=== PATIENT | female | born 1940 | race Caucasian/White ===

== ENCOUNTER 2021-10-11 12:33 | Inpatient (IN) | payer MEDICARE ==
[2021-10-11] MEDS ORDERED: Aspirin Chewable 81 MG TAB ONE (13:29)
[2021-10-11 13:34] LABS: #Eosinphils 0.2 thou/uL (0.0-0.7); #Lymphocytes 1.2 thou/uL (1.20-3.40); #Monocytes 0.6 thou/uL (0.11-0.59); #Neutrophils 3.3 thou/uL (1.40-6.50); %Basophils 0.8 % (0.0-1.0); %Eosinophils 3.1 % (0.0-10.0); %Lymphocytes 22.1 % (21.0-51.0); %Monocytes 10.8 % (0.0-10.0); %Neutrophils 63.2 % (42.0-75.0); Hemoglobin 13.3 g/dL (12.0-16.0); Mean Corpuscular HGB CONC 33.1 g/dL (32.0-36.0); Mean Corpuscular Hemoglobin 34.5 pg (27.0-31.0); Mean Platelet Volume 7.8 fL (7.4-10.4); Platelet Count 140 thou/uL (130-400); Red Blood Cell (RBC) Count 3.86 mill/uL (4.20-5.40); White Blood Cell (WBC) Count 5.2 thou/uL (4.8-10.8)
[2021-10-11 13:58] LABS: ALT (SGPT) 11 U/L (8-55); AST (SGOT) 25 U/L (5-34); Albumin 3.2 g/dL (3.4-4.8); Alkaline Phosphatase 99 U/L (40-110); Anion Gap 12 mmol/L (10-20); BUN (Urea Nitrogen) 19 mg/dL (9.8-20.1); Bilirubin, Total 0.8 mg/dL (0.2-1.2); Calc. Creatinine Clearance 0 mL/min (70-130); Carbon Dioxide 33 mmol/L (23-31); Chloride 96 mmol/L (98-107); Globulin 3.5 g/dL (2.4-3.5); Glucose 95 mg/dL (83-110); Potassium 3.8 mmol/L (3.5-5.1); Protein, Total 6.7 g/dL (5.8-8.1); Sodium 137 mmol/L (136-145)
[2021-10-11 14:20] LABS: CKMB 1.2 ng/mL (0-6.6)
[2021-10-11 15:20] LABS: Bacteria/HPF None Seen HPF (None Seen); Bilirubin Negative (Negative); Blood, Urine Negative (Negative); Clarity Clear (Clear); Glucose, Urine (Dipstick) Normal (Negative); Ketone, Urine Negative (Negative); Leukocyte Negative Leu/uL (Negative); Nitrite Negative (Negative); Protein, Urine (Dipstick) 100 mg/dL (Neg-Trace); RBC/HPF None Seen HPF (0-3); Specific Gravity, Urine 1.011 (1.002-1.036); Squamous Epithelial 0-3 HPF (0-3); Urobilinogen Normal mg/dL (Less than 2); WBC/HPF 0-3 HPF (0-3)
[2021-10-11 17:25] LABS: INR-International Normal Ratio 1.2; PTT 27.9 sec (22.9-36.1); Prothrombin Time 14.9 sec (12.0-14.7)
[2021-10-11] MEDS ORDERED: Ondansetron PF 4 MG/2 ML Vial IVP PRN (18:20)
[2021-10-11 18:36] LABS: Troponin I 0.027 ng/mL (< 0.028)
[2021-10-11 19:53] LABS: SARS-CoV-2 NAA Rapid Test Not Detected (NotDetected)
[2021-10-11] MEDS ORDERED: Famotidine 20 MG TAB ONE (21:10)
[2021-10-11] MEDS: Senokot 8.6 MG TAB PO SCH (21:39)
[2021-10-11] MEDS: Famotidine 20 MG TAB PO SCH (21:39)
[2021-10-11 22:50] LABS: Troponin I 0.036 ng/mL (< 0.028)
[2021-10-11] MEDS ORDERED: HYDROcodone/Acetaminophen 10/325 mg Tablet ONE (23:49)
[2021-10-11] MEDS: HYDROcodone/Acetaminophen 10/325 mg Tablet PO PRN (23:54)
[2021-10-12] MEDS ORDERED: Morphine 4 MG/ML VIAL SLOW IVP PRN (02:33)
[2021-10-12] MEDS ORDERED: Morphine 4 MG/ML VIAL ONE (03:10)
[2021-10-12 09:46] VITALS: BMI 40.4
[2021-10-12] MEDS ORDERED: HYDROcodone/Acetaminophen 10/325 mg Tablet PO PRN ×2 (11:32→11:33)
[2021-10-12] MEDS ORDERED: Lisinopril 5 MG TAB PO SCH (11:45)
[2021-10-12] MEDS ORDERED: Warfarin Sodium 2.5 MG TAB PO SCH (11:45)
[2021-10-12] MEDS ORDERED: FLUoxetine HCl 20 MG CAP PO SCH (11:45)
[2021-10-12] MEDS ORDERED: Warfarin Sodium 5 MG TAB PO SCH (11:45)
[2021-10-12] MEDS ORDERED: Morphine 4 MG/ML VIAL SLOW IVP SCH (12:00)
[2021-10-12] MEDS ORDERED: HYDROcodone/Acetaminophen 10/325 mg Tablet ONE (12:01)
[2021-10-12] MEDS: HYDROcodone/Acetaminophen 10/325 mg Tablet PO PRN (12:26)
[2021-10-12] MEDS ORDERED: Famotidine 20 MG TAB ONE (12:49)
[2021-10-12] MEDS ORDERED: Lisinopril 10 MG TAB ONE (12:49)
[2021-10-12] MEDS: Famotidine 20 MG TAB PO SCH ×2 (13:41→20:48)
[2021-10-12] MEDS: Gabapentin 100 MG CAP PO SCH ×2 (15:44→20:47)
[2021-10-12] MEDS ORDERED: FLU VACC QS2021-22(65YR UP)/PF 240 MCG/0.7 ML SYRINGE IM ONE (16:00)
[2021-10-12] MEDS: Warfarin Sodium 5 MG TAB PO SCH (16:46)
[2021-10-12] MEDS: Senokot 8.6 MG TAB PO SCH (20:48)
[2021-10-12] MEDS: Simvastatin 5 MG TAB PO SCH (20:48)
[2021-10-13] MEDS: Levothyroxine Sodium 112 MCG TAB PO SCH (05:54)
[2021-10-13] MEDS: Gabapentin 100 MG CAP PO SCH ×3 (09:32→21:31)
[2021-10-13] MEDS: FLUoxetine HCl 20 MG CAP PO SCH (09:33)
[2021-10-13] MEDS: Lisinopril 5 MG TAB PO SCH (09:33)
[2021-10-13] MEDS: Famotidine 20 MG TAB PO SCH ×2 (09:34→21:31)
[2021-10-13] MEDS: Allopurinol 300 MG TAB PO SCH (09:34)
[2021-10-13] MEDS ORDERED: oxyCODONE 5 MG TAB PO PRN (10:58)
[2021-10-13] MEDS ORDERED: Dexamethasone 4 MG TAB PO SCH (11:15)
[2021-10-13] MEDS ORDERED: Warfarin Sodium 2.5 MG TAB PO SCH (17:00)
[2021-10-13] MEDS: Oxybutynin 5 MG TAB PO SCH (21:31)
[2021-10-13] MEDS: oxyCODONE ER 10 MG TAB PO SCH (21:31)
[2021-10-13] MEDS: Senokot 8.6 MG TAB PO SCH (21:31)
[2021-10-13] MEDS: Simvastatin 5 MG TAB PO SCH (21:31)
[2021-10-14 05:21] LABS: INR-International Normal Ratio 1.4; Prothrombin Time 17.4 sec (12.0-14.7)
[2021-10-14] MEDS: Levothyroxine Sodium 112 MCG TAB PO SCH (06:05)
[2021-10-14] MEDS: Polyethylene Glycol 3350 17 GM Packet PO SCH (09:29)
[2021-10-14] MEDS: Famotidine 20 MG TAB PO SCH ×2 (09:30→22:20)
[2021-10-14] MEDS: Allopurinol 300 MG TAB PO SCH (09:30)
[2021-10-14] MEDS: FLUoxetine HCl 20 MG CAP PO SCH (09:30)
[2021-10-14] MEDS: Lisinopril 5 MG TAB PO SCH (09:30)
[2021-10-14] MEDS: Oxybutynin 5 MG TAB PO SCH ×3 (09:30→22:20)
[2021-10-14] MEDS: Gabapentin 100 MG CAP PO SCH ×3 (09:30→22:20)
[2021-10-14] MEDS: oxyCODONE ER 10 MG TAB PO SCH ×2 (09:31→22:20)
[2021-10-14] MEDS: Dexamethasone 4 MG TAB PO SCH (09:31)
[2021-10-14] MEDS: Warfarin Sodium 5 MG TAB PO SCH (18:15)
[2021-10-14] MEDS: Simvastatin 5 MG TAB PO SCH (22:20)
[2021-10-14] MEDS: Senokot 8.6 MG TAB PO SCH (22:21)
[2021-10-15 04:49] LABS: INR-International Normal Ratio 1.9; Prothrombin Time 21.8 sec (12.0-14.7)
[2021-10-15] MEDS: Levothyroxine Sodium 112 MCG TAB PO SCH (05:42)
[2021-10-15] MEDS: Polyethylene Glycol 3350 17 GM Packet PO SCH (09:30)
[2021-10-15] MEDS: Gabapentin 100 MG CAP PO SCH (09:31)
[2021-10-15] MEDS: Oxybutynin 5 MG TAB PO SCH (09:31)
[2021-10-15] MEDS: FLUoxetine HCl 20 MG CAP PO SCH (09:31)
[2021-10-15] MEDS: Famotidine 20 MG TAB PO SCH (09:31)
[2021-10-15] MEDS: Lisinopril 5 MG TAB PO SCH (09:32)
[2021-10-15] MEDS: oxyCODONE ER 10 MG TAB PO SCH (09:32)
[2021-10-15] MEDS: Allopurinol 300 MG TAB PO SCH (09:32)
[2021-10-15] MEDS: Dexamethasone 4 MG TAB PO SCH (09:32)
[2021-10-15 12:22] VITALS: BP 155/65; TEMP 97.7
== END 2021-10-15 12:25 | DRG 552 ==
LOC: ERS 12:33 → ERHOLD 17:06 → OBSVTOIN 10-12 11:45 → SJJU 10-12 14:33
PROVIDERS: ADMIT Family Medicine; ATTEND Internal Medicine
DX: S32.000A Wedge compression fracture of unspecified lumbar vertebra, initial encounter for closed fracture (principal); I48.20 Chronic atrial fibrillation, unspecified; Z20.822 Contact with and (suspected) exposure to COVID-19; Z66 Do not resuscitate; R79.89 Other specified abnormal findings of blood chemistry; E66.9 Obesity, unspecified; M48.061 Spinal stenosis, lumbar region without neurogenic claudication; R15.9 Full incontinence of feces; R32 Unspecified urinary incontinence; F32.A Depression, unspecified; E03.9 Hypothyroidism, unspecified; W18.30XA Fall on same level, unspecified, initial encounter; E11.9 Type 2 diabetes mellitus without complications; E78.5 Hyperlipidemia, unspecified; M10.9 Gout, unspecified; M43.06 Spondylolysis, lumbar region; Z68.41 Body mass index [BMI] 40.0-44.9, adult; Z82.49 Family history of ischemic heart disease and other diseases of the circulatory system; Z83.6 Family history of other diseases of the respiratory system; Z79.01 Long term (current) use of anticoagulants; Z79.890 Hormone replacement therapy; Z79.899 Other long term (current) drug therapy; Z86.73 Personal history of transient ischemic attack (TIA), and cerebral infarction without residual deficits; Z90.49 Acquired absence of other specified parts of digestive tract; Z90.710 Acquired absence of both cervix and uterus; Y92.002 Bathroom of unspecified non-institutional (private) residence as the place of occurrence of the external cause
CPT/HCPCS: 36415; 36416; 51701; 71045; 72100; 72148; 80053; 81003; 81015; 82553; 83880; 84484; 85025; 85610; 85730; 93005; 96374; G0378; J2270; J8540; U0002

== ENCOUNTER 2022-06-09 11:21 | Inpatient (IN) | payer MEDICARE, MEDICAID ==
[2022-06-09 12:25] LABS: #Eosinphils 0.4 thou/uL (0.0-0.7); #Lymphocytes 1.1 thou/uL (1.20-3.40); #Monocytes 0.4 thou/uL (0.11-0.59); #Neutrophils 2.8 thou/uL (1.40-6.50); %Basophils 0.6 % (0.0-1.0); %Eosinophils 7.7 % (0.0-10.0); %Monocytes 8.2 % (0.0-10.0); %Neutrophils 59.5 % (42.0-75.0); Hemoglobin 9.1 g/dL (12.0-16.0); Mean Corpuscular Hemoglobin 31.1 pg (27.0-31.0); Mean Platelet Volume 7.1 fL (7.4-10.4); Platelet Count 176 thou/uL (130-400); RBC Distribution Width 13.7 % (11.5-14.5); Red Blood Cell (RBC) Count 2.93 mill/uL (4.20-5.40); White Blood Cell (WBC) Count 4.7 thou/uL (4.8-10.8)
[2022-06-09 12:36] LABS: INR-International Normal Ratio 1.2; PTT 34.3 sec (22.9-36.1); Prothrombin Time 15.3 sec (12.0-14.7)
[2022-06-09 12:46] LABS: ALT (SGPT) Less than 7 U/L (8-55); AST (SGOT) 12 U/L (5-34); Albumin 3.2 g/dL (3.4-4.8); Alkaline Phosphatase 66 U/L (40-110); Anion Gap 10 mmol/L (10-20); BUN (Urea Nitrogen) 16 mg/dL (9.8-20.1); Bilirubin, Total 0.3 mg/dL (0.2-1.2); Calc. Creatinine Clearance 0 mL/min (70-130); Calcium 8.4 mg/dL (7.8-10.44); Carbon Dioxide 31 mmol/L (23-31); Chloride 102 mmol/L (98-107); Estimated GFR 52; Globulin 3.5 g/dL (2.4-3.5); Glucose 98 mg/dL (83-110); Magnesium 1.9 mg/dL (1.6-2.6); Potassium 4.4 mmol/L (3.5-5.1); Protein, Total 6.7 g/dL (5.8-8.1); Sodium 139 mmol/L (136-145)
[2022-06-09] MEDS ORDERED: Pantoprazole 40 MG VIAL ONE (13:28)
[2022-06-09] MEDS ORDERED: GASTROGRAFIN 30 ML BOT ONE (14:06)
[2022-06-09] MEDS ORDERED: Iopamidol-370 76% 500 ML 1 ML ONE (14:06)
[2022-06-09] MEDS ORDERED: Artificial Tear Sol 15 ML BOT EA EYE PRN (14:15)
[2022-06-09] MEDS ORDERED: Ondansetron PF 4 MG/2 ML Vial IVP PRN (14:15)
[2022-06-09] MEDS ORDERED: Acetaminophen 650 MG Suppository PR PRN (14:15)
[2022-06-09] MEDS ORDERED: Moisturizing Cream (Eucerin) 113 GM JAR TOP PRN (14:15)
[2022-06-09] MEDS ORDERED: hydrALAZINE 20 MG/ML VIAL SLOW IVP PRN (14:15)
[2022-06-09] MEDS ORDERED: Acetaminophen 325 MG TAB PO PRN (14:15)
[2022-06-09] MEDS ORDERED: Labetalol HCl 100 MG/20 ML VIAL SLOW IVP PRN (14:15)
[2022-06-09] MEDS ORDERED: Cepastat Lozenges 1 LOZ PO PRN (14:15)
[2022-06-09 14:33] LABS: Bacteria/HPF None Seen HPF (None Seen); Bilirubin Negative (Negative); Blood, Urine 3+ (Negative); Clarity Clear (Clear); Glucose, Urine (Dipstick) Normal (Negative); Ketone, Urine Negative (Negative); Leukocyte Negative Leu/uL (Negative); Nitrite Negative (Negative); Protein, Urine (Dipstick) 10 mg/dL (Neg-Trace); RBC/HPF Greater than 50 HPF (0-3); Specific Gravity, Urine 1.006 (1.002-1.036); Squamous Epithelial 0-3 HPF (0-3); Urobilinogen Normal mg/dL (Less than 2); WBC/HPF 0-3 HPF (0-3)
[2022-06-09 16:53] VITALS: BMI 37.9
[2022-06-09 17:04] LABS: Hemoglobin 9.1 g/dL (12.0-16.0); Platelet Count 164 thou/uL (130-400)
[2022-06-09 17:24] LABS: Magnesium 1.9 mg/dL (1.6-2.6); Phosphorus 3.5 mg/dL (2.3-4.7)
[2022-06-09] MEDS: Gabapentin 100 MG CAP PO SCH (21:18)
[2022-06-09] MEDS: Donepezil HCl 5 MG TAB PO SCH (21:18)
[2022-06-09] MEDS: Amoxicillin/Potassium Clav 875 MG TAB PO SCH (21:18)
[2022-06-09 23:24] LABS: Platelet Count 162 thou/uL (130-400)
[2022-06-10 03:50] LABS: #Eosinphils 0.4 thou/uL (0.0-0.7); #Lymphocytes 1.1 thou/uL (1.20-3.40); #Monocytes 0.4 thou/uL (0.11-0.59); #Neutrophils 2.6 thou/uL (1.40-6.50); %Basophils 0.8 % (0.0-1.0); %Eosinophils 8.4 % (0.0-10.0); %Lymphocytes 23.6 % (21.0-51.0); %Monocytes 9.8 % (0.0-10.0); %Neutrophils 57.4 % (42.0-75.0); Hemoglobin 8.1 g/dL (12.0-16.0); Mean Corpuscular HGB CONC 33.4 g/dL (32.0-36.0); Mean Platelet Volume 7.4 fL (7.4-10.4); Platelet Count 154 thou/uL (130-400); RBC Distribution Width 13.7 % (11.5-14.5); Red Blood Cell (RBC) Count 2.38 mill/uL (4.20-5.40); White Blood Cell (WBC) Count 4.6 thou/uL (4.8-10.8)
[2022-06-10 04:08] LABS: Anion Gap 10 mmol/L (10-20); BUN (Urea Nitrogen) 16 mg/dL (9.8-20.1); Calc. Creatinine Clearance 80 mL/min (70-130); Carbon Dioxide 29 mmol/L (23-31); Chloride 104 mmol/L (98-107); Estimated GFR 66; Glucose 81 mg/dL (83-110); Potassium 4.5 mmol/L (3.5-5.1); Sodium 138 mmol/L (136-145)
[2022-06-10] MEDS: Levothyroxine Sodium 112 MCG TAB PO SCH (05:37)
[2022-06-10] MEDS ORDERED: Pantoprazole 40 MG VIAL IVP SCH (09:00)
[2022-06-10] MEDS: Amoxicillin/Potassium Clav 875 MG TAB PO SCH ×2 (09:36→21:09)
[2022-06-10] MEDS: FLUoxetine HCl 20 MG CAP PO SCH (09:36)
[2022-06-10] MEDS: Oxybutynin 5 MG TAB PO SCH (09:37)
[2022-06-10] MEDS: Gabapentin 100 MG CAP PO SCH ×3 (09:37→21:10)
[2022-06-10] MEDS: Folic Acid 1 MG TAB PO SCH (09:37)
[2022-06-10] MEDS: Allopurinol 100 MG TAB PO SCH (09:37)
[2022-06-10 10:50] LABS: Hemoglobin 8.5 g/dL (12.0-16.0)
[2022-06-10] MEDS ORDERED: Electrolyte Replacement Protocol 1 EACH FS SCH (16:15)
[2022-06-10] MEDS ORDERED: Electrolyte Replacement Protocol FS PRN (16:45)
[2022-06-10] MEDS ORDERED: GoLYTELY 4,000 ml Bottle PO SCH (18:00)
[2022-06-10] MEDS: Donepezil HCl 5 MG TAB PO SCH (21:09)
[2022-06-10] MEDS: Pantoprazole 40 MG VIAL IVP SCH (21:10)
[2022-06-10] MEDS: Ondansetron ODT 4 MG TAB PO PRN (22:30)
[2022-06-11] MEDS ORDERED: Magnesium 2 GM/50 ML(in water) 2 GM in Premix Bag 1 BAG IVPB SCH ×2 (01:00→07:45)
[2022-06-11] MEDS: Levothyroxine Sodium 112 MCG TAB PO SCH (05:49)
[2022-06-11 06:26] LABS: #Eosinphils 0.3 thou/uL (0.0-0.7); #Lymphocytes 1.2 thou/uL (1.20-3.40); #Monocytes 0.5 thou/uL (0.11-0.59); #Neutrophils 2.4 thou/uL (1.40-6.50); %Basophils 0.3 % (0.0-1.0); %Eosinophils 6.2 % (0.0-10.0); %Lymphocytes 26.7 % (21.0-51.0); %Monocytes 10.6 % (0.0-10.0); %Neutrophils 56.2 % (42.0-75.0); Hemoglobin 8.4 g/dL (12.0-16.0); Mean Corpuscular HGB CONC 31.6 g/dL (32.0-36.0); Mean Corpuscular Hemoglobin 31.7 pg (27.0-31.0); Mean Platelet Volume 7.3 fL (7.4-10.4); Platelet Count 161 thou/uL (130-400); RBC Distribution Width 13.7 % (11.5-14.5); Red Blood Cell (RBC) Count 2.65 mill/uL (4.20-5.40); White Blood Cell (WBC) Count 4.3 thou/uL (4.8-10.8)
[2022-06-11 06:45] LABS: Anion Gap 14 mmol/L (10-20); BUN (Urea Nitrogen) 14 mg/dL (9.8-20.1); Calc. Creatinine Clearance 80 mL/min (70-130); Calcium 8.4 mg/dL (7.8-10.44); Carbon Dioxide 26 mmol/L (23-31); Chloride 105 mmol/L (98-107); Estimated GFR 66; Glucose 88 mg/dL (83-110); Potassium 4.4 mmol/L (3.5-5.1); Sodium 141 mmol/L (136-145)
[2022-06-11] MEDS ORDERED: PROPOFOL 200 MG/20 ML VIAL ONE (08:28)
[2022-06-11] MEDS: Amoxicillin/Potassium Clav 875 MG TAB PO SCH ×2 (10:40→21:15)
[2022-06-11] MEDS: FLUoxetine HCl 20 MG CAP PO SCH (10:41)
[2022-06-11] MEDS: Gabapentin 100 MG CAP PO SCH ×3 (10:41→21:16)
[2022-06-11] MEDS: Pantoprazole 40 MG VIAL IVP SCH ×2 (10:41→21:16)
[2022-06-11] MEDS: Oxybutynin 5 MG TAB PO SCH (10:41)
[2022-06-11] MEDS: Folic Acid 1 MG TAB PO SCH (10:41)
[2022-06-11] MEDS: Allopurinol 100 MG TAB PO SCH (10:41)
[2022-06-11 16:07] LABS: Campy jejuni + coli by PCR Negative (Negative); STEC Shiga Toxin 1+2 Negative (Negative); Salmonella spp. by PCR Negative (Negative); Shigella spp + EIEC by PCR Negative (Negative)
[2022-06-11] MEDS: Donepezil HCl 5 MG TAB PO SCH (21:16)
[2022-06-12] MEDS: Levothyroxine Sodium 112 MCG TAB PO SCH (05:24)
[2022-06-12 06:04] LABS: #Eosinphils 0.3 thou/uL (0.0-0.7); #Lymphocytes 1.2 thou/uL (1.20-3.40); #Monocytes 0.4 thou/uL (0.11-0.59); %Basophils 0.2 % (0.0-1.0); %Eosinophils 6.5 % (0.0-10.0); %Lymphocytes 24.6 % (21.0-51.0); %Monocytes 8.7 % (0.0-10.0); Hemoglobin 8.2 g/dL (12.0-16.0); Mean Corpuscular HGB CONC 32.4 g/dL (32.0-36.0); Mean Corpuscular Hemoglobin 32.5 pg (27.0-31.0); Mean Platelet Volume 7.7 fL (7.4-10.4); Platelet Count 152 thou/uL (130-400); RBC Distribution Width 13.8 % (11.5-14.5); Red Blood Cell (RBC) Count 2.53 mill/uL (4.20-5.40)
[2022-06-12 06:27] LABS: Anion Gap 12 mmol/L (10-20); BUN (Urea Nitrogen) 9 mg/dL (9.8-20.1); Calc. Creatinine Clearance 83 mL/min (70-130); Calcium 8.1 mg/dL (7.8-10.44); Carbon Dioxide 28 mmol/L (23-31); Chloride 102 mmol/L (98-107); Estimated GFR 68; Glucose 80 mg/dL (83-110); Magnesium 2.2 mg/dL (1.6-2.6); Potassium 3.9 mmol/L (3.5-5.1); Sodium 138 mmol/L (136-145)
[2022-06-12] MEDS: Oxybutynin 5 MG TAB PO SCH (08:46)
[2022-06-12] MEDS: Allopurinol 100 MG TAB PO SCH (08:46)
[2022-06-12] MEDS: Folic Acid 1 MG TAB PO SCH (08:46)
[2022-06-12] MEDS: Amoxicillin/Potassium Clav 875 MG TAB PO SCH (08:46)
[2022-06-12] MEDS: FLUoxetine HCl 20 MG CAP PO SCH (08:46)
[2022-06-12] MEDS: Gabapentin 100 MG CAP PO SCH ×3 (08:46→20:01)
[2022-06-12] MEDS: Pantoprazole 40 MG VIAL IVP SCH ×2 (08:47→20:02)
[2022-06-12] MEDS ORDERED: Magnesium Citrate 300 ML BOT PO SCH ×2 (09:00→14:00)
[2022-06-12] MEDS ORDERED: guaiFENesin ER 600 MG TAB PO PRN (12:50)
[2022-06-12] MEDS: Erythromycin Base 250 MG TAB PO SCH ×4 (13:45→20:04)
[2022-06-12] MEDS ORDERED: Polyethylene Glycol 3350 17 GM Packet PO SCH ×2 (15:00→17:00)
[2022-06-12] MEDS: Metoclopramide HCl 10 MG TAB PO SCH ×2 (15:27→20:02)
[2022-06-12] MEDS: Neomycin 500 mg Tablet PO SCH ×3 (17:21→20:05)
[2022-06-12] MEDS: Donepezil HCl 5 MG TAB PO SCH (20:01)
[2022-06-12] MEDS: Senokot 8.6 MG TAB PO SCH (20:03)
[2022-06-12] MEDS: Simvastatin 10 MG TAB PO SCH (20:03)
[2022-06-13] MEDS: Ondansetron ODT 4 MG TAB PO PRN (02:53)
[2022-06-13] MEDS: Levothyroxine Sodium 112 MCG TAB PO SCH (05:33)
[2022-06-13] MEDS ORDERED: fentaNYL Citrate/PF 100 MCG/2 ML SYRINGE ONE (06:00)
[2022-06-13 06:32] LABS: #Eosinphils 0.1 thou/uL (0.0-0.7); #Monocytes 0.3 thou/uL (0.11-0.59); #Neutrophils 3.7 thou/uL (1.40-6.50); %Basophils 0.5 % (0.0-1.0); %Eosinophils 1.5 % (0.0-10.0); %Lymphocytes 20.1 % (21.0-51.0); %Monocytes 6.2 % (0.0-10.0); %Neutrophils 71.8 % (42.0-75.0); Hemoglobin 8.2 g/dL (12.0-16.0); Mean Corpuscular Hemoglobin 33.1 pg (27.0-31.0); Mean Platelet Volume 7.5 fL (7.4-10.4); Platelet Count 160 thou/uL (130-400); RBC Distribution Width 13.6 % (11.5-14.5); Red Blood Cell (RBC) Count 2.47 mill/uL (4.20-5.40); White Blood Cell (WBC) Count 5.1 thou/uL (4.8-10.8)
[2022-06-13] MEDS ORDERED: Iopamidol 0 ML ONE (06:43)
[2022-06-13] MEDS ORDERED: Bupivacaine/Epinephrine 0.25% 30 ML VIAL ONE ×2 (06:43→07:14)
[2022-06-13 06:54] LABS: Anion Gap 13 mmol/L (10-20); BUN (Urea Nitrogen) 8 mg/dL (9.8-20.1); Calc. Creatinine Clearance 85 mL/min (70-130); Calcium 8.1 mg/dL (7.8-10.44); Carbon Dioxide 29 mmol/L (23-31); Chloride 101 mmol/L (98-107); Estimated GFR 70; Glucose 94 mg/dL (83-110); Potassium 4.1 mmol/L (3.5-5.1); Sodium 139 mmol/L (136-145)
[2022-06-13] MEDS ORDERED: Fentanyl 100 MCG/2 ML VIAL ONE (07:59)
[2022-06-13] MEDS ORDERED: cefOXitin 2 GM VIAL ONE ×3 (08:14→12:43)
[2022-06-13] MEDS ORDERED: Sodium Chloride 0.9% 100 ML ONE (08:14)
[2022-06-13] MEDS ORDERED: Ropivacaine 0.5% HCl/PF (150 MG/30 ML VIAL) ONE (08:52)
[2022-06-13] MEDS ORDERED: PROPOFOL 200 MG/20 ML VIAL ONE (08:52)
[2022-06-13] MEDS ORDERED: Vecuronium 10 MG VIAL ONE (08:52)
[2022-06-13] MEDS ORDERED: Phenylephrine 10 MG/ML VIAL ONE (08:52)
[2022-06-13] MEDS ORDERED: Rocuronium Bromide 10 MG/ML (10ML VIAL) ONE (08:52)
[2022-06-13] MEDS ORDERED: Ondansetron PF 4 MG/2 ML Vial ONE (08:52)
[2022-06-13] MEDS ORDERED: Ropivacaine 2% HCl/PF (20 MG/10 ML VIAL) ONE (08:52)
[2022-06-13] MEDS ORDERED: Dexamethasone 20 MG/5 ML VIAL ONE (08:52)
[2022-06-13] MEDS ORDERED: Norepinephrine 4 MG/4 ML VIAL ONE ×2 (09:12→12:10)
[2022-06-13] MEDS: Allopurinol 100 MG TAB PO SCH (10:16)
[2022-06-13] MEDS: Gabapentin 100 MG CAP PO SCH ×3 (10:17→20:35)
[2022-06-13] MEDS: Folic Acid 1 MG TAB PO SCH (10:17)
[2022-06-13] MEDS: FLUoxetine HCl 20 MG CAP PO SCH (10:17)
[2022-06-13] MEDS: Oxybutynin 5 MG TAB PO SCH (10:18)
[2022-06-13] MEDS: Pantoprazole 40 MG VIAL IVP SCH (10:18)
[2022-06-13] MEDS ORDERED: SUGAMMADEX SODIUM 200 MG/2 ML VIAL ONE (10:42)
[2022-06-13] MEDS ORDERED: Promethazine HCl 25 MG/ML VIAL IVPB PRN (13:43)
[2022-06-13] MEDS ORDERED: Promethazine HCl 25 MG/ML VIAL IM PRN ×2 (13:43→14:05)
[2022-06-13] MEDS ORDERED: Ondansetron HCl/PF 4 MG/2 ML Vial IVP PRN (13:43)
[2022-06-13] MEDS ORDERED: Morphine 2 MG/ML VIAL SLOW IVP PRN (14:05)
[2022-06-13] MEDS ORDERED: Morphine 4 MG/ML VIAL SLOW IVP PRN (14:05)
[2022-06-13] MEDS ORDERED: Ondansetron PF 4 MG/2 ML Vial IVP PRN (14:05)
[2022-06-13] MEDS ORDERED: hydrALAZINE 20 MG/ML VIAL SLOW IVP PRN (14:05)
[2022-06-13] MEDS: Sodium Chloride 0.9% 1,000 ML IV SCH ×2 (16:22→22:15)
[2022-06-13] MEDS: cefOXitin 2 GM in Sodium Chloride 0.9% 100 ML IVPB SCH (17:10)
[2022-06-13] MEDS: Famotidine 20 MG TAB PO SCH (20:35)
[2022-06-13] MEDS: Famotidine/PF 20 mg/2ml Vial SLOW IVP SCH (20:35)
[2022-06-13] MEDS: Senokot 8.6 MG TAB PO SCH (20:35)
[2022-06-13] MEDS: Simvastatin 10 MG TAB PO SCH (20:35)
[2022-06-13] MEDS: Donepezil HCl 5 MG TAB PO SCH (20:35)
[2022-06-14] MEDS: cefOXitin 2 GM in Sodium Chloride 0.9% 100 ML IVPB SCH (01:09)
[2022-06-14] MEDS: Sodium Chloride 0.9% 1,000 ML IV SCH ×3 (05:49→23:40)
[2022-06-14] MEDS: Levothyroxine Sodium 112 MCG TAB PO SCH (05:49)
[2022-06-14 06:06] LABS: #Lymphocytes 0.8 thou/uL (1.20-3.40); #Monocytes 0.8 thou/uL (0.11-0.59); #Neutrophils 6.9 thou/uL (1.40-6.50); %Eosinophils 0.1 % (0.0-10.0); %Lymphocytes 8.9 % (21.0-51.0); %Monocytes 9.8 % (0.0-10.0); %Neutrophils 81.2 % (42.0-75.0); Mean Corpuscular HGB CONC 31.3 g/dL (32.0-36.0); Mean Corpuscular Hemoglobin 31.2 pg (27.0-31.0); Mean Corpuscular Volume 99.6 fL (78.0-98.0); Mean Platelet Volume 7.4 fL (7.4-10.4); Platelet Count 185 thou/uL (130-400); RBC Distribution Width 13.9 % (11.5-14.5); Red Blood Cell (RBC) Count 2.25 mill/uL (4.20-5.40); White Blood Cell (WBC) Count 8.5 thou/uL (4.8-10.8)
[2022-06-14 06:29] LABS: Anion Gap 12 mmol/L (10-20); BUN (Urea Nitrogen) 10 mg/dL (9.8-20.1); Calc. Creatinine Clearance 67 mL/min (70-130); Calcium 7.9 mg/dL (7.8-10.44); Carbon Dioxide 27 mmol/L (23-31); Chloride 102 mmol/L (98-107); Estimated GFR 52; Glucose 109 mg/dL (83-110); Magnesium 1.8 mg/dL (1.6-2.6); Phosphorus 3.6 mg/dL (2.3-4.7); Potassium 4.3 mmol/L (3.5-5.1); Sodium 137 mmol/L (136-145)
[2022-06-14] MEDS ORDERED: Magnesium 2 GM/50 ML(in water) 2 GM in Premix Bag 1 BAG IVPB SCH (08:00)
[2022-06-14] MEDS: FLUoxetine HCl 20 MG CAP PO SCH (08:30)
[2022-06-14] MEDS: Famotidine 20 MG TAB PO SCH ×2 (08:30→20:23)
[2022-06-14] MEDS: Folic Acid 1 MG TAB PO SCH (08:30)
[2022-06-14] MEDS: Allopurinol 100 MG TAB PO SCH (08:30)
[2022-06-14] MEDS: Gabapentin 100 MG CAP PO SCH ×3 (08:30→20:24)
[2022-06-14] MEDS: Oxybutynin 5 MG TAB PO SCH (08:30)
[2022-06-14] MEDS: Famotidine/PF 20 mg/2ml Vial SLOW IVP SCH ×2 (08:31→20:23)
[2022-06-14] MEDS ORDERED: Furosemide 20 MG/2 ML VIAL SLOW IVP SCH (12:00)
[2022-06-14 15:06] LABS: Hemoglobin 8.2 g/dL (12.0-16.0); Mean Corpuscular HGB CONC 31.3 g/dL (32.0-36.0); Mean Corpuscular Hemoglobin 31.1 pg (27.0-31.0); Mean Corpuscular Volume 99.4 fL (78.0-98.0); Platelet Count 170 thou/uL (130-400); RBC Distribution Width 13.7 % (11.5-14.5); Red Blood Cell (RBC) Count 2.63 mill/uL (4.20-5.40); White Blood Cell (WBC) Count 9.1 thou/uL (4.8-10.8)
[2022-06-14 15:07] LABS: Band 1 % (5-11); Hypochromia SLIGHT = 6-15 cells (100X) (0-5/hpf); Lymphocytes 13 % (21-51); MDiff Complete? YES; Macrocytosis SLIGHT = 6-15 cells (100X) (0-5/hpf); Monocytes 11 % (0-10); Neutrophil 73 % (42-75); Platelet Morphology Comment Appears Adequate; Polychromasia SLIGHT = 2-3 cells (100X) (0-2/hpf); Reactive Lymphocytes 2 % (0-10); Target Cells SLIGHT = 2-5 cells (100X) (0-1/hpf)
[2022-06-14] MEDS: Donepezil HCl 5 MG TAB PO SCH (20:23)
[2022-06-14] MEDS: Senokot 8.6 MG TAB PO SCH (20:23)
[2022-06-14] MEDS: Simvastatin 10 MG TAB PO SCH (20:24)
[2022-06-15] MEDS: Levothyroxine Sodium 112 MCG TAB PO SCH (05:52)
[2022-06-15] MEDS: Sodium Chloride 0.9% 1,000 ML IV SCH (05:57)
[2022-06-15 06:19] LABS: #Eosinphils 0.1 thou/uL (0.0-0.7); #Lymphocytes 1.1 thou/uL (1.20-3.40); #Monocytes 0.7 thou/uL (0.11-0.59); #Neutrophils 4.2 thou/uL (1.40-6.50); %Basophils 0.4 % (0.0-1.0); %Lymphocytes 17.2 % (21.0-51.0); %Monocytes 11.7 % (0.0-10.0); %Neutrophils 68.7 % (42.0-75.0); Hemoglobin 6.9 g/dL (12.0-16.0); Mean Corpuscular HGB CONC 31.2 g/dL (32.0-36.0); Mean Corpuscular Volume 99.4 fL (78.0-98.0); Mean Platelet Volume 7.3 fL (7.4-10.4); Platelet Count 167 thou/uL (130-400); RBC Distribution Width 13.7 % (11.5-14.5); Red Blood Cell (RBC) Count 2.21 mill/uL (4.20-5.40); White Blood Cell (WBC) Count 6.2 thou/uL (4.8-10.8)
[2022-06-15] MEDS ORDERED: D5 1/2 NS w/20 mEq KCL 1,000 ML IV SCH (08:15)
[2022-06-15] MEDS: Gabapentin 100 MG CAP PO SCH ×3 (08:49→20:05)
[2022-06-15] MEDS: Oxybutynin 5 MG TAB PO SCH (08:49)
[2022-06-15] MEDS: Folic Acid 1 MG TAB PO SCH (08:50)
[2022-06-15] MEDS: FLUoxetine HCl 20 MG CAP PO SCH (08:50)
[2022-06-15] MEDS: Famotidine 20 MG TAB PO SCH ×2 (08:50→20:06)
[2022-06-15] MEDS: Famotidine/PF 20 mg/2ml Vial SLOW IVP SCH ×2 (08:50→20:07)
[2022-06-15] MEDS: Allopurinol 100 MG TAB PO SCH (08:50)
[2022-06-15] MEDS ORDERED: Furosemide 40 MG/4 ML VIAL SLOW IVP SCH ×2 (11:15→17:00)
[2022-06-15 15:52] LABS: #Eosinphils 0.2 thou/uL (0.0-0.7); #Lymphocytes 1.1 thou/uL (1.20-3.40); #Monocytes 0.7 thou/uL (0.11-0.59); #Neutrophils 5.4 thou/uL (1.40-6.50); %Basophils 0.3 % (0.0-1.0); %Eosinophils 3.1 % (0.0-10.0); %Lymphocytes 14.9 % (21.0-51.0); %Monocytes 9.9 % (0.0-10.0); %Neutrophils 71.8 % (42.0-75.0); Hemoglobin 9.1 g/dL (12.0-16.0); Mean Corpuscular HGB CONC 31.9 g/dL (32.0-36.0); Mean Corpuscular Hemoglobin 31.5 pg (27.0-31.0); Mean Corpuscular Volume 98.7 fL (78.0-98.0); Mean Platelet Volume 7.3 fL (7.4-10.4); Platelet Count 160 thou/uL (130-400); RBC Distribution Width 13.6 % (11.5-14.5); White Blood Cell (WBC) Count 7.5 thou/uL (4.8-10.8)
[2022-06-15] MEDS: D5 1/2 NS w/20 mEq KCL 1,000 ML IV SCH (16:59)
[2022-06-15] MEDS: Donepezil HCl 5 MG TAB PO SCH (20:05)
[2022-06-15] MEDS: Senokot 8.6 MG TAB PO SCH (20:07)
[2022-06-15] MEDS: Simvastatin 10 MG TAB PO SCH (20:10)
[2022-06-16 05:58] LABS: #Eosinphils 0.4 thou/uL (0.0-0.7); #Lymphocytes 0.9 thou/uL (1.20-3.40); #Monocytes 0.7 thou/uL (0.11-0.59); %Basophils 0.2 % (0.0-1.0); %Eosinophils 5.4 % (0.0-10.0); %Lymphocytes 13.4 % (21.0-51.0); %Monocytes 9.8 % (0.0-10.0); %Neutrophils 71.2 % (42.0-75.0); Hemoglobin 8.3 g/dL (12.0-16.0); Mean Corpuscular HGB CONC 30.9 g/dL (32.0-36.0); Mean Corpuscular Hemoglobin 30.9 pg (27.0-31.0); Mean Platelet Volume 7.2 fL (7.4-10.4); Platelet Count 173 thou/uL (130-400); RBC Distribution Width 13.4 % (11.5-14.5); Red Blood Cell (RBC) Count 2.68 mill/uL (4.20-5.40)
[2022-06-16 06:22] LABS: Anion Gap 10 mmol/L (10-20); BUN (Urea Nitrogen) 7 mg/dL (9.8-20.1); Calc. Creatinine Clearance 86 mL/min (70-130); Calcium 7.9 mg/dL (7.8-10.44); Carbon Dioxide 33 mmol/L (23-31); Chloride 101 mmol/L (98-107); Estimated GFR 71; Glucose 97 mg/dL (83-110); Magnesium 1.7 mg/dL (1.6-2.6); Potassium 3.3 mmol/L (3.5-5.1); Sodium 141 mmol/L (136-145)
[2022-06-16] MEDS: D5 1/2 NS w/20 mEq KCL 1,000 ML IV SCH (06:22)
[2022-06-16] MEDS: Levothyroxine Sodium 112 MCG TAB PO SCH (06:22)
[2022-06-16] MEDS ORDERED: Potassium Chloride 20 MEQ TAB PO SCH ×2 (07:45→08:00)
[2022-06-16] MEDS ORDERED: Magnesium 2 GM/50 ML(in water) 2 GM in Premix Bag 1 BAG IVPB SCH ×2 (07:45→08:00)
[2022-06-16] MEDS: Folic Acid 1 MG TAB PO SCH (09:01)
[2022-06-16] MEDS: FLUoxetine HCl 20 MG CAP PO SCH (09:01)
[2022-06-16] MEDS: Gabapentin 100 MG CAP PO SCH ×3 (09:01→20:59)
[2022-06-16] MEDS: Oxybutynin 5 MG TAB PO SCH (09:01)
[2022-06-16] MEDS: Allopurinol 100 MG TAB PO SCH (09:01)
[2022-06-16] MEDS: Famotidine 20 MG TAB PO SCH ×2 (09:01→21:00)
[2022-06-16] MEDS: Famotidine/PF 20 mg/2ml Vial SLOW IVP SCH ×2 (09:02→20:53)
[2022-06-16 15:37] LABS: #Eosinphils 0.3 thou/uL (0.0-0.7); #Lymphocytes 1.4 thou/uL (1.20-3.40); #Monocytes 0.6 thou/uL (0.11-0.59); #Neutrophils 5.1 thou/uL (1.40-6.50); %Basophils 0.3 % (0.0-1.0); %Eosinophils 3.9 % (0.0-10.0); %Lymphocytes 19.4 % (21.0-51.0); %Monocytes 7.6 % (0.0-10.0); %Neutrophils 68.9 % (42.0-75.0); Hemoglobin 8.4 g/dL (12.0-16.0); Mean Corpuscular HGB CONC 30.9 g/dL (32.0-36.0); Mean Corpuscular Hemoglobin 30.7 pg (27.0-31.0); Mean Corpuscular Volume 99.1 fL (78.0-98.0); Mean Platelet Volume 7.5 fL (7.4-10.4); Platelet Count 197 thou/uL (130-400); RBC Distribution Width 13.6 % (11.5-14.5); Red Blood Cell (RBC) Count 2.73 mill/uL (4.20-5.40); White Blood Cell (WBC) Count 7.5 thou/uL (4.8-10.8)
[2022-06-16] MEDS: Simvastatin 10 MG TAB PO SCH (20:59)
[2022-06-16] MEDS: Donepezil HCl 5 MG TAB PO SCH (21:00)
[2022-06-16] MEDS: Senokot 8.6 MG TAB PO SCH (21:02)
[2022-06-16] MEDS: Acetaminophen 325 MG TAB PO PRN (23:30)
[2022-06-17 05:40] LABS: #Eosinphils 0.2 thou/uL (0.0-0.7); #Lymphocytes 1.2 thou/uL (1.20-3.40); #Monocytes 0.6 thou/uL (0.11-0.59); #Neutrophils 4.3 thou/uL (1.40-6.50); %Basophils 0.1 % (0.0-1.0); %Eosinophils 3.8 % (0.0-10.0); %Lymphocytes 18.3 % (21.0-51.0); %Monocytes 9.7 % (0.0-10.0); %Neutrophils 68.2 % (42.0-75.0); Mean Corpuscular Hemoglobin 30.9 pg (27.0-31.0); Mean Corpuscular Volume 99.4 fL (78.0-98.0); Mean Platelet Volume 7.2 fL (7.4-10.4); Platelet Count 178 thou/uL (130-400); RBC Distribution Width 13.4 % (11.5-14.5); White Blood Cell (WBC) Count 6.3 thou/uL (4.8-10.8)
[2022-06-17 05:59] LABS: Anion Gap 9 mmol/L (10-20); BUN (Urea Nitrogen) 6 mg/dL (9.8-20.1); Calc. Creatinine Clearance 98 mL/min (70-130); Calcium 7.9 mg/dL (7.8-10.44); Carbon Dioxide 34 mmol/L (23-31); Chloride 100 mmol/L (98-107); Estimated GFR 83; Glucose 86 mg/dL (83-110); Potassium 3.8 mmol/L (3.5-5.1); Sodium 139 mmol/L (136-145)
[2022-06-17] MEDS: Levothyroxine Sodium 112 MCG TAB PO SCH (06:32)
[2022-06-17] MEDS ORDERED: Magnesium 2 GM/50 ML(in water) 2 GM in Premix Bag 1 BAG IVPB SCH (08:00)
[2022-06-17] MEDS: FLUoxetine HCl 20 MG CAP PO SCH (08:59)
[2022-06-17] MEDS: Famotidine 20 MG TAB PO SCH ×2 (08:59→20:48)
[2022-06-17] MEDS: Oxybutynin 5 MG TAB PO SCH (08:59)
[2022-06-17] MEDS: Gabapentin 100 MG CAP PO SCH ×3 (08:59→20:47)
[2022-06-17] MEDS: Folic Acid 1 MG TAB PO SCH (08:59)
[2022-06-17] MEDS: Allopurinol 100 MG TAB PO SCH (08:59)
[2022-06-17] MEDS: Famotidine/PF 20 mg/2ml Vial SLOW IVP SCH ×2 (09:01→21:44)
[2022-06-17] MEDS: D5 1/2 NS w/20 mEq KCL 1,000 ML IV SCH (10:41)
[2022-06-17] MEDS: Acetaminophen 325 MG TAB PO PRN (20:46)
[2022-06-17] MEDS: Simvastatin 10 MG TAB PO SCH (20:48)
[2022-06-17] MEDS: Donepezil HCl 5 MG TAB PO SCH (20:48)
[2022-06-17] MEDS: Senokot 8.6 MG TAB PO SCH (21:44)
[2022-06-18 06:16] LABS: #Eosinphils 0.4 thou/uL (0.0-0.7); #Lymphocytes 1.2 thou/uL (1.20-3.40); #Monocytes 0.6 thou/uL (0.11-0.59); #Neutrophils 4.3 thou/uL (1.40-6.50); %Basophils 0.4 % (0.0-1.0); %Eosinophils 6.1 % (0.0-10.0); %Lymphocytes 18.3 % (21.0-51.0); %Monocytes 9.7 % (0.0-10.0); %Neutrophils 65.5 % (42.0-75.0); Hemoglobin 8.3 g/dL (12.0-16.0); Mean Corpuscular HGB CONC 30.9 g/dL (32.0-36.0); Mean Corpuscular Hemoglobin 30.6 pg (27.0-31.0); Mean Corpuscular Volume 98.9 fL (78.0-98.0); Mean Platelet Volume 7.3 fL (7.4-10.4); Platelet Count 207 thou/uL (130-400); RBC Distribution Width 13.4 % (11.5-14.5); Red Blood Cell (RBC) Count 2.71 mill/uL (4.20-5.40); White Blood Cell (WBC) Count 6.5 thou/uL (4.8-10.8)
[2022-06-18] MEDS: Levothyroxine Sodium 112 MCG TAB PO SCH (06:27)
[2022-06-18] MEDS: Folic Acid 1 MG TAB PO SCH (08:20)
[2022-06-18] MEDS: Gabapentin 100 MG CAP PO SCH ×3 (08:20→20:13)
[2022-06-18] MEDS: Famotidine/PF 20 mg/2ml Vial SLOW IVP SCH ×2 (08:20→20:13)
[2022-06-18] MEDS: FLUoxetine HCl 20 MG CAP PO SCH (08:20)
[2022-06-18] MEDS: Famotidine 20 MG TAB PO SCH ×2 (08:20→20:13)
[2022-06-18] MEDS: Allopurinol 100 MG TAB PO SCH (08:20)
[2022-06-18] MEDS: Oxybutynin 5 MG TAB PO SCH (08:20)
[2022-06-18] MEDS: Acetaminophen 325 MG TAB PO PRN (20:11)
[2022-06-18] MEDS: Simvastatin 10 MG TAB PO SCH (20:12)
[2022-06-18] MEDS: Donepezil HCl 5 MG TAB PO SCH (20:13)
[2022-06-18] MEDS: Senokot 8.6 MG TAB PO SCH (20:14)
[2022-06-19 04:49] VITALS: TEMP 98.3
[2022-06-19] MEDS: Levothyroxine Sodium 112 MCG TAB PO SCH (06:06)
[2022-06-19 08:10] VITALS: BP 156/84
[2022-06-19] MEDS: Gabapentin 100 MG CAP PO SCH (09:29)
[2022-06-19] MEDS: FLUoxetine HCl 20 MG CAP PO SCH (09:29)
[2022-06-19] MEDS: Famotidine 20 MG TAB PO SCH (09:29)
[2022-06-19] MEDS: Allopurinol 100 MG TAB PO SCH (09:29)
[2022-06-19] MEDS: Oxybutynin 5 MG TAB PO SCH (09:29)
[2022-06-19] MEDS: Folic Acid 1 MG TAB PO SCH (09:29)
[2022-06-19] MEDS: Famotidine/PF 20 mg/2ml Vial SLOW IVP SCH (09:30)
== END 2022-06-19 11:00 | DRG 329 ==
LOC: ERS 11:21 → SJJU 13:40 → OBSVTOIN 06-10 17:24
PROVIDERS: ADMIT Internal Medicine; ATTEND Internal Medicine
PROC: 0DBN8ZX Excision of Sigmoid Colon, Via Natural or Artificial Opening Endoscopic, Diagnostic (ICD-10-PCS; 2022-06-11)
PROC: 0DBK8ZZ Excision of Ascending Colon, Via Natural or Artificial Opening Endoscopic (ICD-10-PCS; 2022-06-11)
PROC: 0DBN0ZZ Excision of Sigmoid Colon, Open Approach (ICD-10-PCS; principal; 2022-06-13)
PROC: 0T788DZ Dilation of Bilateral Ureters with Intraluminal Device, Via Natural or Artificial Opening Endoscopic (ICD-10-PCS; 2022-06-13)
PROC: 30233N1 Transfusion of Nonautologous Red Blood Cells into Peripheral Vein, Percutaneous Approach (ICD-10-PCS; 2022-06-14)
DX: D12.5 Benign neoplasm of sigmoid colon (principal); K57.31 Diverticulosis of large intestine without perforation or abscess with bleeding; D62 Acute posthemorrhagic anemia; J81.1 Chronic pulmonary edema; Z66 Do not resuscitate; Z20.822 Contact with and (suspected) exposure to COVID-19; I48.0 Paroxysmal atrial fibrillation; E03.9 Hypothyroidism, unspecified; K64.8 Other hemorrhoids; D12.2 Benign neoplasm of ascending colon; I49.3 Ventricular premature depolarization; F32.A Depression, unspecified; D72.819 Decreased white blood cell count, unspecified; G31.84 Mild cognitive impairment of uncertain or unknown etiology; N32.81 Overactive bladder; E78.5 Hyperlipidemia, unspecified; E87.6 Hypokalemia; E83.42 Hypomagnesemia; Z86.73 Personal history of transient ischemic attack (TIA), and cerebral infarction without residual deficits; Z90.49 Acquired absence of other specified parts of digestive tract; Z90.710 Acquired absence of both cervix and uterus; Z79.899 Other long term (current) drug therapy; Z79.890 Hormone replacement therapy; Z79.2 Long term (current) use of antibiotics; Z68.37 Body mass index [BMI] 37.0-37.9, adult; I10 Essential (primary) hypertension; F41.9 Anxiety disorder, unspecified; Z91.81 History of falling; R15.9 Full incontinence of feces; E66.01 Morbid (severe) obesity due to excess calories
CPT/HCPCS: 36415; 36416; 36430; 51701; 71045; 74177; 80048; 80053; 81003; 81015; 82378; 83735; 83880; 84100; 85025; 85610; 85730; 86850; 86900; 86901; 87324; 87449; 87505; 88305; 88307; 93005; 93010; 93306; 94640; 96374; 96376; A4649; C1776; C1889; C9113; G0378; J0694; J1100; J1940; J2270; J2370; J2405; J2704; J2795; J3010; J3475; J3480; J3490; J7050; J7620; P9016; Q0162; Q9963; Q9967; U0003; U0005

== ENCOUNTER 2022-11-05 15:55 | Inpatient (IN) | payer MEDICARE, MEDICAID ==
[2022-11-05 17:11] LABS: #Eosinphils 0.2 thou/uL (0.0-0.7); #Lymphocytes 0.8 thou/uL (1.20-3.40); #Monocytes 0.4 thou/uL (0.11-0.59); #Neutrophils 3.7 thou/uL (1.40-6.50); %Basophils 0.2 % (0.0-1.0); %Eosinophils 3.2 % (0.0-10.0); %Lymphocytes 15.8 % (21.0-51.0); %Monocytes 7.8 % (0.0-10.0); %Neutrophils 73.1 % (42.0-75.0); Hemoglobin 12.3 g/dL (12.0-16.0); Mean Corpuscular HGB CONC 31.1 g/dL (32.0-36.0); Mean Corpuscular Hemoglobin 31.9 pg (27.0-31.0); Mean Platelet Volume 7.7 fL (7.4-10.4); Platelet Count 130 10x3/uL (130-400); RBC Distribution Width 14.5 % (11.5-14.5); Red Blood Cell (RBC) Count 3.86 mill/uL (4.20-5.40); White Blood Cell (WBC) Count 5.1 10x3/uL (4.8-10.8)
[2022-11-05 17:30] LABS: ALT (SGPT) 10 U/L (8-55); AST (SGOT) 17 U/L (5-34); Albumin 3.2 g/dL (3.4-4.8); Alkaline Phosphatase 86 U/L (40-110); Anion Gap 11 mmol/L (10-20); BUN (Urea Nitrogen) 23 mg/dL (9.8-20.1); Bilirubin, Total 0.5 mg/dL (0.2-1.2); Calc. Creatinine Clearance 0 mL/min (70-130); Calcium 8.7 mg/dL (7.8-10.44); Carbon Dioxide 35 mmol/L (23-31); Chloride 101 mmol/L (98-107); Estimated GFR 57; Globulin 4.4 g/dL (2.4-3.5); Glucose 117 mg/dL (83-110); Potassium 4.2 mmol/L (3.5-5.1); Protein, Total 7.6 g/dL (5.8-8.1); Sodium 143 mmol/L (136-145)
[2022-11-05] MEDS ORDERED: Furosemide 40 MG/4 ML VIAL ONE (17:32)
[2022-11-05 17:52] LABS: CKMB 1.9 ng/mL (0-6.6)
[2022-11-05] MEDS ORDERED: Acetaminophen 325 MG TAB PO PRN (20:09)
[2022-11-05] MEDS ORDERED: Ondansetron PF 4 MG/2 ML Vial IVP PRN (20:09)
[2022-11-05] MEDS ORDERED: HumaLOG 300 UNITS/3 ML VIAL SC PRN ×2 (20:09)
[2022-11-05] MEDS ORDERED: Dextrose 5% in Water 1,000 ML IV PRN (20:09)
[2022-11-05] MEDS ORDERED: Ondansetron ODT 4 MG TAB PO PRN (20:09)
[2022-11-05] MEDS ORDERED: Dextrose 50% Abboject 50 ML SYRINGE SLOW IVP PRN (20:09)
[2022-11-05] MEDS ORDERED: HYDROcodone/Acetaminophen 5/325 mg Tablet PO PRN (20:09)
[2022-11-05 21:55] LABS: Glucose 102 mg/dL (83-110); Hemoglobin A1c 5.7 % (4.0-6.0)
[2022-11-05 22:06] LABS: Troponin I 0.039 ng/mL (< 0.028)
[2022-11-06 00:28] VITALS: BMI 41.6
[2022-11-06 01:37] LABS: Troponin I 0.031 ng/mL (< 0.028)
[2022-11-06 05:01] LABS: #Eosinphils 0.3 thou/uL (0.0-0.7); #Lymphocytes 0.9 thou/uL (1.20-3.40); #Monocytes 0.5 thou/uL (0.11-0.59); #Neutrophils 2.7 thou/uL (1.40-6.50); %Basophils 0.5 % (0.0-1.0); %Eosinophils 6.3 % (0.0-10.0); %Monocytes 11.4 % (0.0-10.0); %Neutrophils 60.8 % (42.0-75.0); Hemoglobin 11.2 g/dL (12.0-16.0); Mean Corpuscular HGB CONC 31.3 g/dL (32.0-36.0); Mean Corpuscular Hemoglobin 32.3 pg (27.0-31.0); Mean Platelet Volume 7.9 fL (7.4-10.4); Platelet Count 120 10x3/uL (130-400); RBC Distribution Width 14.2 % (11.5-14.5); Red Blood Cell (RBC) Count 3.48 mill/uL (4.20-5.40); White Blood Cell (WBC) Count 4.4 10x3/uL (4.8-10.8)
[2022-11-06 05:15] LABS: Anion Gap 14 mmol/L (10-20); BUN (Urea Nitrogen) 20 mg/dL (9.8-20.1); Calc. Creatinine Clearance 80 mL/min (70-130); Calcium 8.5 mg/dL (7.8-10.44); Carbon Dioxide 35 mmol/L (23-31); Cardiac Risk 2.4 (Less than 4.5); Chloride 100 mmol/L (98-107); Cholesterol 140 mg/dl (< 200 Desired); Estimated GFR 57; Glucose 90 mg/dL (83-110); HDL Cholesterol 58 mg/dL (>60 Neg Risk); LDL Cholesterol, Calculated 73 mg/dL; Magnesium 1.9 mg/dL (1.6-2.6); Potassium 4.3 mmol/L (3.5-5.1); Sodium 145 mmol/L (136-145); Triglycerides 43 mg/dL (Less than 150)
[2022-11-06] MEDS ORDERED: Furosemide 40 MG/4 ML VIAL ONE ×2 (05:52→15:51)
[2022-11-06] MEDS: Furosemide 40 MG/4 ML VIAL SLOW IVP SCH ×2 (06:01→15:58)
[2022-11-06] MEDS ORDERED: Ipratropium/Albuterol 3 ML NEB NEB PRN (07:31)
[2022-11-06] MEDS ORDERED: Folic Acid 1 MG TAB ONE (09:07)
[2022-11-06] MEDS: Allopurinol 100 MG TAB PO SCH (09:24)
[2022-11-06] MEDS: Ferrous Sulfate 325 MG TAB PO SCH (09:24)
[2022-11-06] MEDS: FLUoxetine HCl 20 MG CAP PO SCH (09:24)
[2022-11-06] MEDS: Folic Acid 1 MG TAB PO SCH (09:25)
[2022-11-06] MEDS: Lidocaine 5% Patch TD SCH (09:25)
[2022-11-06] MEDS ORDERED: Ipratropium/Albuterol 3 ML NEB ONE (10:50)
[2022-11-06] MEDS ORDERED: Spironolactone 25 MG TAB PO SCH (17:00)
[2022-11-06] MEDS ORDERED: Furosemide 40 MG/4 ML VIAL SLOW IVP SCH ×2 (17:00)
[2022-11-06] MEDS ORDERED: Empagliflozin 10 MG TAB PO SCH (17:00)
[2022-11-06 18:07] LABS: Glucose 134 mg/dL (83-110)
[2022-11-06] MEDS ORDERED: Sterile Water 10 ML VIAL FS PRN (20:15)
[2022-11-06] MEDS ORDERED: OLANZapine 10 MG VIAL IM SCH (20:15)
[2022-11-06 22:08] LABS: #Eosinphils 0.1 thou/uL (0.0-0.7); #Lymphocytes 0.5 thou/uL (1.20-3.40); #Monocytes 0.5 thou/uL (0.11-0.59); #Neutrophils 6.3 thou/uL (1.40-6.50); %Eosinophils 1.6 % (0.0-10.0); %Lymphocytes 7.2 % (21.0-51.0); %Monocytes 7.2 % (0.0-10.0); %Neutrophils 84.1 % (42.0-75.0); Hemoglobin 12.4 g/dL (12.0-16.0); Mean Corpuscular HGB CONC 30.7 g/dL (32.0-36.0); Mean Corpuscular Hemoglobin 31.3 pg (27.0-31.0); Mean Platelet Volume 8.8 fL (7.4-10.4); Platelet Count 133 10x3/uL (130-400); RBC Distribution Width 14.6 % (11.5-14.5); Red Blood Cell (RBC) Count 3.98 mill/uL (4.20-5.40); White Blood Cell (WBC) Count 7.5 10x3/uL (4.8-10.8)
[2022-11-06 22:23] LABS: Lactic Acid 1.2 mmol/L (0.5-2.2)
[2022-11-06 22:26] LABS: Anion Gap 15 mmol/L (10-20); BUN (Urea Nitrogen) 20 mg/dL (9.8-20.1); Calc. Creatinine Clearance 84 mL/min (70-130); Carbon Dioxide 35 mmol/L (23-31); Chloride 96 mmol/L (98-107); Estimated GFR 60; Glucose 113 mg/dL (83-110); Potassium 4.1 mmol/L (3.5-5.1); Sodium 142 mmol/L (136-145)
[2022-11-06] MEDS: Senokot 8.6 MG TAB PO SCH (22:51)
[2022-11-06] MEDS: Transdermal Patch Removal TOP SCH (22:51)
[2022-11-06] MEDS: Enoxaparin 120 MG/0.8 ML SYRINGE SC SCH (22:51)
[2022-11-06] MEDS: Simvastatin 10 MG TAB PO SCH (22:51)
[2022-11-06] MEDS: Donepezil HCl 5 MG TAB PO SCH (22:51)
[2022-11-07] MEDS ORDERED: hydrALAZINE 20 MG/ML VIAL SLOW IVP SCH (04:00)
[2022-11-07] MEDS: Levothyroxine Sodium 112 MCG TAB PO SCH (05:48)
[2022-11-07] MEDS ORDERED: Furosemide 40 MG/4 ML VIAL SLOW IVP SCH (06:00)
[2022-11-07] MEDS: Ferrous Sulfate 325 MG TAB PO SCH (08:33)
[2022-11-07] MEDS: Allopurinol 100 MG TAB PO SCH (08:35)
[2022-11-07] MEDS: Empagliflozin 10 MG TAB PO SCH (08:36)
[2022-11-07] MEDS: Folic Acid 1 MG TAB PO SCH (08:36)
[2022-11-07] MEDS: Losartan 25 MG TAB PO SCH (08:37)
[2022-11-07] MEDS: FLUoxetine HCl 20 MG CAP PO SCH (08:39)
[2022-11-07] MEDS: Spironolactone 25 MG TAB PO SCH (08:39)
[2022-11-07] MEDS: Enoxaparin 120 MG/0.8 ML SYRINGE SC SCH ×3 (08:41→23:00)
[2022-11-07] MEDS ORDERED: Non-Formulary Item 1 EACH (Olmesartan Medoxomil [Olmesartan Medoxomil] 40 MG Tablet) PO SCH (09:00)
[2022-11-07] MEDS ORDERED: Empagliflozin 10 MG TAB PO SCH (09:00)
[2022-11-07] MEDS: Furosemide 40 MG/4 ML VIAL SLOW IVP SCH (15:54)
[2022-11-07] MEDS: Lidocaine 5% Patch TD SCH (16:00)
[2022-11-07] MEDS: Ipratropium/Albuterol 3 ML NEB NEB SCH (18:45)
[2022-11-07] MEDS: Donepezil HCl 5 MG TAB PO SCH (20:19)
[2022-11-07] MEDS: Senokot 8.6 MG TAB PO SCH (20:19)
[2022-11-07] MEDS: Transdermal Patch Removal TOP SCH (20:20)
[2022-11-07] MEDS: Simvastatin 10 MG TAB PO SCH (20:20)
[2022-11-08 00:09] LABS: Bacteria/HPF None Seen HPF (None Seen); Bilirubin Negative (Negative); Blood, Urine Negative (Negative); CAUTI Indications for Culture Alt mental st,lethar; Clarity Clear (Clear); Glucose, Urine (Dipstick) 200 mg/dL (Negative); Ketone, Urine Trace mg/dL (Negative); Leukocyte Negative Leu/uL (Negative); Nitrite Negative (Negative); Protein, Urine (Dipstick) 30 mg/dL (Neg-Trace); RBC/HPF 0-3 HPF (0-3); Specific Gravity, Urine 1.009 (1.002-1.036); Squamous Epithelial None Seen HPF (0-3); Urobilinogen Normal mg/dL (Less than 2); WBC/HPF 0-3 HPF (0-3); pH, Urine 7.5 (5.0-9.0)
[2022-11-08 00:11] LABS: Urine Culture Reflex No No
[2022-11-08] MEDS: hydrALAZINE 20 MG/ML VIAL SLOW IVP PRN ×2 (00:27→04:20)
[2022-11-08] MEDS: Levothyroxine Sodium 112 MCG TAB PO SCH (06:15)
[2022-11-08] MEDS: Furosemide 40 MG/4 ML VIAL SLOW IVP SCH ×2 (06:16→14:22)
[2022-11-08] MEDS: Ipratropium/Albuterol 3 ML NEB NEB SCH (07:47)
[2022-11-08] MEDS ORDERED: Ipratropium/Albuterol 3 ML NEB NEB PRN (09:31)
[2022-11-08] MEDS: Allopurinol 100 MG TAB PO SCH (11:49)
[2022-11-08] MEDS: Ferrous Sulfate 325 MG TAB PO SCH (11:49)
[2022-11-08] MEDS: Empagliflozin 10 MG TAB PO SCH (11:55)
[2022-11-08] MEDS: FLUoxetine HCl 20 MG CAP PO SCH (11:55)
[2022-11-08] MEDS: Folic Acid 1 MG TAB PO SCH (11:56)
[2022-11-08] MEDS: Lidocaine 5% Patch TD SCH (11:56)
[2022-11-08] MEDS: Losartan 25 MG TAB PO SCH (11:56)
[2022-11-08] MEDS: Spironolactone 25 MG TAB PO SCH (11:56)
[2022-11-08 12:27] LABS: Anion Gap 17 mmol/L (10-20); BUN (Urea Nitrogen) 21 mg/dL (9.8-20.1); Calc. Creatinine Clearance 92 mL/min (70-130); Calcium 9.2 mg/dL (7.8-10.44); Carbon Dioxide 37 mmol/L (23-31); Chloride 93 mmol/L (98-107); Estimated GFR 67; Glucose 70 mg/dL (83-110); Potassium 3.8 mmol/L (3.5-5.1); Sodium 143 mmol/L (136-145)
[2022-11-08] MEDS: Dextrose 5% in Water 1,000 ML IV SCH (14:16)
[2022-11-08] MEDS: Enoxaparin 120 MG/0.8 ML SYRINGE SC SCH (23:28)
[2022-11-08] MEDS: Donepezil HCl 5 MG TAB PO SCH (23:28)
[2022-11-08] MEDS: Transdermal Patch Removal TOP SCH (23:35)
[2022-11-08] MEDS: Simvastatin 10 MG TAB PO SCH (23:35)
[2022-11-08] MEDS: Senokot 8.6 MG TAB PO SCH (23:35)
[2022-11-09 04:35] LABS: Cardiac Risk 3.1 (Less than 4.5)
[2022-11-09] MEDS: Furosemide 40 MG/4 ML VIAL SLOW IVP SCH (05:07)
[2022-11-09] MEDS: Levothyroxine Sodium 112 MCG TAB PO SCH (05:30)
[2022-11-09 08:31] LABS: Glucose 86 mg/dL (83-110)
[2022-11-09] MEDS ORDERED: Aspirin 300 MG Suppository PR SCH (09:00)
[2022-11-09] MEDS: Ferrous Sulfate 325 MG TAB PO SCH (10:00)
[2022-11-09] MEDS: Empagliflozin 10 MG TAB PO SCH (10:00)
[2022-11-09] MEDS: FLUoxetine HCl 20 MG CAP PO SCH (10:00)
[2022-11-09] MEDS: Spironolactone 25 MG TAB PO SCH (10:01)
[2022-11-09] MEDS: Losartan 25 MG TAB PO SCH (10:01)
[2022-11-09] MEDS: Enoxaparin 120 MG/0.8 ML SYRINGE SC SCH (10:02)
[2022-11-09] MEDS: Allopurinol 100 MG TAB PO SCH (10:02)
[2022-11-09] MEDS: Folic Acid 1 MG TAB PO SCH (10:02)
[2022-11-09] MEDS: Lidocaine 5% Patch TD SCH (10:08)
[2022-11-09] MEDS: Dextrose 5% in Water 1,000 ML IV SCH (10:09)
[2022-11-09 11:07] LABS: Syphilis Antibody Nonreactive (Nonreactive); Syphilis Antibody Index 0.09 S/CO (<1.00 Non-Reactive)
[2022-11-09] MEDS: hydrALAZINE 20 MG/ML VIAL SLOW IVP PRN (11:54)
[2022-11-09 12:20] LABS: Glucose 76 mg/dL (83-110)
[2022-11-09 14:02] LABS: CCP IgG Antibody 1.8 EliAU/mL (<7 Negative); Rheumatoid Factor IgM Antibody 3.6 IU/mL (<3.5 Negative)
[2022-11-09 16:14] VITALS: BP 164/81; TEMP 97.6
== END 2022-11-09 16:00 | DRG 291 ==
LOC: ERS 15:55 → ERHOLD 19:07 → 2NO 11-06 16:50
PROVIDERS: ADMIT Hospitalist; ATTEND Hospitalist
DX: I11.0 Hypertensive heart disease with heart failure (principal); Z66 Do not resuscitate; Z20.822 Contact with and (suspected) exposure to COVID-19; I50.33 Acute on chronic diastolic (congestive) heart failure; J96.01 Acute respiratory failure with hypoxia; Z68.41 Body mass index [BMI] 40.0-44.9, adult; I48.19 Other persistent atrial fibrillation; F05 Delirium due to known physiological condition; E03.9 Hypothyroidism, unspecified; N32.81 Overactive bladder; M10.9 Gout, unspecified; I87.2 Venous insufficiency (chronic) (peripheral); E66.01 Morbid (severe) obesity due to excess calories; E11.51 Type 2 diabetes mellitus with diabetic peripheral angiopathy without gangrene; F03.90 Unspecified dementia, unspecified severity, without behavioral disturbance, psychotic disturbance, mood disturbance, and anxiety; Z79.899 Other long term (current) drug therapy; Z79.890 Hormone replacement therapy; Z90.49 Acquired absence of other specified parts of digestive tract; Z90.710 Acquired absence of both cervix and uterus; Z86.010 Personal history of colon polyps; Z86.73 Personal history of transient ischemic attack (TIA), and cerebral infarction without residual deficits
CPT/HCPCS: 36415; 36416; 70450; 70551; 71045; 80048; 80053; 80061; 81001; 82553; 82947; 83036; 83520; 83605; 83735; 83880; 84443; 84484; 85025; 86200; 86780; 93005; 93306; 93923; 94640; 96374; J0360; J1650; J1940; J7070; J7620; U0003; U0005